=== PATIENT | male | born 1940 | race Caucasian/White ===

== ENCOUNTER 2023-08-06 09:18 | Day surgery (SDC) | payer MEDICARE ==
[2023-07-31 12:23] VITALS: BP 145/61; PULSE 56; RESP 20
[2023-07-31 12:24] LABS: BASOPHILS # (AUTO) 0.02 K/uL (0.00-0.20); BASOPHILS % (AUTO) 0.3 % (0.0-5.0); EOSINOPHILS # (AUTO) 0.17 K/uL (0.00-0.70); EOSINOPHILS % (AUTO) 2.9 % (0.0-8.0); HEMATOCRIT 38.6 % (42-54); IMMATURE GRANULOCYTE ABSOLUTE 0.02 K/uL (0-1); LYMPHOCYTES # (AUTO) 1.3 K/uL (1.0-4.8); LYMPHOCYTES % (AUTO) 22.6 % (21.0-51.0); MEAN CORPUSCULAR HEMOGLOBIN 33.6 pg (27.0-33.0); MEAN CORPUSCULAR HGB CONC 33.2 g/dL (32.0-36.0); MEAN CORPUSCULAR VOLUME 101.3 fL (79-99); MONOCYTES # (AUTO) 0.5 K/uL (0.1-1.0); MONOCYTES % (AUTO) 8.4 % (3.0-13.0); NEUTROPHILS # (AUTO) 3.8 K/uL (1.8-7.7); NEUTROPHILS % (AUTO) 65.5 % (40.0-77.0); PLATELET COUNT (AUTO) 151 K/uL (130-400); RED BLOOD CELL COUNT(AUTO) 3.81 MIL/uL (4.50-6.20); RED CELL DISTRIBUTION WIDTH 11.9 % (11.0-15.5); WHITE BLOOD COUNT (AUTO) 5.8 K/uL (4.8-10.8)
[2023-07-31 12:40] LABS: ADD UA MICROSCOPIC YES
[2023-07-31 12:48] LABS: APPEARANCE,URINE CLEAR (CLEAR); BILIRUBIN,URINE NEGATIVE (NEGATIVE); COLOR,URINE LIGHT-YELLOW (YELLOW); GLUCOSE, URINE (UA) NEGATIVE (NEGATIVE); KETONES,URINE NEGATIVE (NEGATIVE); LEUKOCYTE ESTERASE ,URINE NEGATIVE Leu/uL (NEGATIVE); MUCUS,URINE RARE LPF (None Seen); NITRATE,URINE NEGATIVE (NEGATIVE); OCCULT BLOOD,URINE NEGATIVE (NEGATIVE); PROTEIN,URINE NEGATIVE (NEGATIVE); RBC,URINE 0-1 /HPF (0-1); UROBILINOGEN,URINE 0.2 mg/dL (0.2-1.0); WBC,URINE 0-1 /HPF (0-1)
[2023-08-06] VITALS (12 sets, daily range): BP systolic 119–149; BP diastolic 57–89; PULSE 62–90; RESP 11–19
[~2023-08-06] VITALS: Ht 167.6 cm; Wt 62.2 kg
[~2023-08-06 09:18] MED LIST: BEVA25VI IJ; FINA5TAB41 PO; LEVO-70 PO; TAMS-1 PO
[2023-08-06] MEDS ORDERED: LACTATED RINGERS 1000ML 1,000 ML IV ONE (09:51)
[2023-08-06] MEDS ORDERED: CEFTRIAXONE 1G VIAL ONE (09:51)
[2023-08-06] MEDS ORDERED: GENTAMICIN 80 MG/NS 100 ML PB 100 ML IV ONE (09:51)
[2023-08-06] MEDS ORDERED: SUCCINYLCHOLINE 200MG/10ML SYR ONE (10:58)
[2023-08-06] MEDS ORDERED: LIDOCAINE PF 100MG/5ML (2%) SYRINGE 5ML ONE (10:58)
[2023-08-06] MEDS ORDERED: DEXAMETHASONE SOD PHOSPHATE 10MG/ML 1ML VIAL ONE (10:58)
[2023-08-06] MEDS ORDERED: MIDAZOLAM HCL 1 MG/ML 2ML VIAL ONE (10:58)
[2023-08-06] MEDS ORDERED: PROPOFOL 10 MG/ML 20ML VIAL IV ONE (10:59)
[2023-08-06] MEDS ORDERED: ROCURONIUM 10MG/1ML SYR 10 MG/ML ML ONE (10:59)
[2023-08-06] MEDS ORDERED: GLYCOPYRROLATE 1 MG/5 ML SYRINGE ONE (10:59)
[2023-08-06] MEDS ORDERED: ONDANSETRON 4MG INJ ONE (10:59)
[2023-08-06] MEDS ORDERED: FENTANYL CITRATE PF 50 MCG/1 ML 2ML VIAL ONE (10:59)
== END 2023-08-06 15:50 | disposition home or self-care (01) ==
LOC: DAH 09:18
PROVIDERS: ATTEND Urology
DX: R97.20 Elevated prostate specific antigen [PSA] (principal); C61 Malignant neoplasm of prostate; N41.0 Acute prostatitis; N41.1 Chronic prostatitis; I10 Essential (primary) hypertension; Z79.01 Long term (current) use of anticoagulants; Z79.899 Other long term (current) drug therapy; Z88.0 Allergy status to penicillin
CPT/HCPCS: 85025; 87088; 81001; 36415; 93005; 55700; 88305; 76872; 76942; A6260; A4663; J7030; J7120; J3010; J0330; J3490; J1100; J2001; J0696; J2250; J2704; J2405; J1580; A4215 ×2; A4649; A4223; A4222; A4221; A4600